=== PATIENT | female | born 1975 | race Caucasian/White ===

== ENCOUNTER 2021-10-04 02:02 | Inpatient (IN) | payer OTHER ==
[2021-10-04 02:48] VITALS: BMI 30.6
[2021-10-04] MEDS ORDERED: LACTATED RINGERS SOLUTION 1000 ML INFUS.BAG IV ONE ×2 (03:36→04:57)
[2021-10-04] MEDS ORDERED: ACETAMINOPHEN 1000 MG/100 ML BAG IVPB ONE (03:36)
[2021-10-04] MEDS ORDERED: ACETAMINOPHEN INJECTION 100 ML IVPB ONE ×2 (04:06→17:51)
[2021-10-04 04:30] LABS: VENOUS BASE EXCESS 1.5 mmol/L (-2-2); VENOUS O2 SATURATION 77.2 % (70-80); VENOUS PH 7.463 (7.310-7.410)
[2021-10-04 04:31] LABS: BASO % 0.4 % (0-2.0); EOS % 0.1 % (0-4.5); HEMATOCRIT 29.3 % (32.4-45.2); HEMOGLOBIN 9.1 GM/dL (10.7-15.3); LYMPH % 19.7 % (8-40); MCHC 31.1 g/dl (32.0-36.0); MEAN CELL VOLUME 56.5 fl (80-96); MEAN PLT VOLUME 8.9 fl (7.5-11.1); MONO % 8.6 % (3.8-10.2); NEUT % 71.2 % (42.8-82.8); PLATELET COUNT 126 10^3/uL (134-434); RDW 18.8 % (11.6-15.6); WHITE BLOOD COUNT 4.5 K/mm3 (4.0-10.0)
[2021-10-04 04:38] LABS: INR 1.21 (0.83-1.09); MCH 17.6 pg (25.7-33.7); PROTHROMBIN TIME (PATIENT) 13.9 SEC (9.7-13.0)
[2021-10-04 04:41] LABS: ACTIVATED PTT 26.7 SECONDS (25.2-36.5)
[2021-10-04 04:45] LABS: CHLORIDE 95 mmol/L (98-107); SODIUM 128 mmol/L (136-145)
[2021-10-04 04:47] LABS: CALCIUM 8.3 mg/dL (8.5-10.1)
[2021-10-04 04:48] LABS: ALBUMIN 3.2 g/dl (3.4-5.0); ANION GAP 5 MMOL/L (8-16); BLOOD UREA NITROGEN 6.6 mg/dL (7-18); CO2 28 mmol/L (21-32); GLUCOSE,RANDOM 354 mg/dL (74-106); LIPASE 141 U/L (73-393)
[2021-10-04 04:51] LABS: CREATININE 0.6 mg/dL (0.55-1.3); SGOT/AST 23 U/L (15-37); SGPT/ALT 24 U/L (13-61)
[2021-10-04 04:52] LABS: BILIRUBIN,TOTAL 0.5 mg/dL (0.2-1); TOT PROT 7.3 g/dl (6.4-8.2)
[2021-10-04 04:54] LABS: ALK PHOS 103 U/L (45-117)
[2021-10-04] MEDS ORDERED: PIPERACILLIN/TAZOB 3.375 GM 3.375 GM in DEXTROSE 5%-WATER - 50 ML IVPB ONE (05:38)
[2021-10-04] MEDS ORDERED: VANCOMYCIN 1 GM in D5W (PRE-DOCKED) 1,000 MG/250 ML IVPB ONE (05:38)
[2021-10-04] MEDS ORDERED: VANCOMYCIN 1 GRAM (PRE-DOCKED) 1,000 MG/250 ML BAG IVPB ONE (05:42)
[2021-10-04] MEDS ORDERED: PIPERACILLIN/TAZOB 3.375 GM 3.375 GM/50 ML BAG IVPB ONE (05:42)
[2021-10-04 06:04] LABS: EPI CELLS 10 /uL (0-25.1); HYALINE CASTS 0 /uL (0-3.1); URINE APPEARANCE CLOUDY; URINE BACTERIA >9,000 /uL (0-1359); URINE BILIRUBIN NEGATIVE (NEGATIVE); URINE COLOR YELLOW; URINE GLUCOSE (UA) 3+ (NEGATIVE); URINE KETONE 1+ (NEGATIVE); URINE LEUK ESTERASE 1+ (NEGATIVE); URINE NITRITE NEGATIVE (NEGATIVE); URINE PROTEIN 1+ (NEGATIVE); URINE RBC 23 /uL (0-23.9); URINE WBC 1181 /uL (0-25.8)
[2021-10-04] MEDS ORDERED: KETOROLAC TROMETHAMINE 15 MG/ML VIAL IVPUSH ONE (08:11)
[2021-10-04] MEDS ORDERED: KETOROLAC TROMETHAMINE 15 MG/ML VIAL ONE (08:29)
[2021-10-04 09:48] LABS: CALCIUM 7.9 mg/dL (8.5-10.1)
[2021-10-04 09:49] LABS: BLOOD UREA NITROGEN 4.3 mg/dL (7-18)
[2021-10-04 09:52] LABS: CREATININE 0.5 mg/dL (0.55-1.3)
[2021-10-04] MEDS ORDERED: ACETAMINOPHEN 1000 MG/100 ML BAG IVPB PRN (13:13)
[2021-10-04] MEDS: LACTATED RINGERS SOLUTION 1,000 ML/1,000 ML INFUS.BAG IV SCH (16:19)
[2021-10-04] MEDS: INSULIN SLIDING SCALE (NOVOLOG) 1 VIAL SQ SCH (17:57)
[2021-10-04] MEDS ORDERED: HEPARIN NA (PORCINE) 5,000 UNITS/ML 1ML VIAL ONE (23:14)
[2021-10-04] MEDS: HEPARIN NA (PORCINE) 5,000 UNITS/ML 1ML VIAL SQ SCH (23:21)
[2021-10-05] MEDS ORDERED: ACETAMINOPHEN INJECTION 100 ML IVPB ONE (03:34)
[2021-10-05] MEDS: INSULIN SLIDING SCALE (NOVOLOG) 1 VIAL SQ SCH ×3 (08:33→16:29)
[2021-10-05 08:36] LABS: BASO % 0.3 % (0-2.0); HEMATOCRIT 27.9 % (32.4-45.2); HEMOGLOBIN 8.5 GM/dL (10.7-15.3); LYMPH % 29.8 % (8-40); MCHC 30.3 g/dl (32.0-36.0); MEAN CELL VOLUME 57.4 fl (80-96); MEAN PLT VOLUME 8.8 fl (7.5-11.1); MONO % 7.2 % (3.8-10.2); NEUT % 62.7 % (42.8-82.8); PLATELET COUNT 116 10^3/uL (134-434); RBC 4.87 M/mm3 (3.60-5.2); RDW 19.1 % (11.6-15.6); WHITE BLOOD COUNT 3.5 K/mm3 (4.0-10.0)
[2021-10-05 08:39] LABS: MCH 17.4 pg (25.7-33.7)
[2021-10-05 08:59] LABS: BLOOD UREA NITROGEN 5.4 mg/dL (7-18); MAGNESIUM 2.1 mg/dL (1.8-2.4)
[2021-10-05 09:01] LABS: CHOLESTEROL 138 mg/dL (50-200)
[2021-10-05 09:02] LABS: CREATININE 0.4 mg/dL (0.55-1.3); PHOSPHOROUS 3.4 mg/dL (2.5-4.9); TRIGLYCERIDES 255 mg/dL (0-150)
[2021-10-05 09:03] LABS: BILIRUBIN,TOTAL 0.4 mg/dL (0.2-1); LDL CHOLESTEROL (ONLY SJRH) 91 mg/dL (5-100); TOT PROT 6.2 g/dl (6.4-8.2)
[2021-10-05 09:04] LABS: HDL CHOLESTEROL 14 mg/dL (40-60)
[2021-10-05 09:06] LABS: ALBUMIN 2.6 g/dl (3.4-5.0)
[2021-10-05] MEDS ORDERED: CEFEPIME HCL/D5W 2 GM/50 ML BAG IVPB ONE (09:09)
[2021-10-05] MEDS ORDERED: HEPARIN NA (PORCINE) 5,000 UNITS/ML 1ML VIAL ONE ×2 (09:26→22:17)
[2021-10-05] MEDS ORDERED: CEFEPIME 2 GM/100 ML BAG IVPB ONE (09:27)
[2021-10-05] MEDS ORDERED: CEFEPIME 2 GM in DEXTROSE 5%-WATER 100 ML IVPB ONE (10:00)
[2021-10-05] MEDS: HEPARIN NA (PORCINE) 5,000 UNITS/ML 1ML VIAL SQ SCH ×2 (10:01→22:41)
[2021-10-05] MEDS: INSULIN (LEVEMIR) 100 UNITS/ML UNITS SQ SCH ×2 (10:01→22:41)
[2021-10-05] MEDS: LACTATED RINGERS SOLUTION 1,000 ML/1,000 ML INFUS.BAG IV SCH (15:30)
[2021-10-05] MEDS: CEFEPIME 2 GM in DEXTROSE 5%-WATER 2 GM/100 ML BAG IVPB SCH (17:48)
[2021-10-05] MEDS ORDERED: ACETAMINOPHEN 325 MG TABLET (FP) PO PRN (21:21)
[2021-10-05] MEDS ORDERED: ACETAMINOPHEN 325 MG TABLET (FP) ONE (22:27)
[2021-10-06] MEDS ORDERED: CEFEPIME 2 GM/100 ML BAG IVPB ONE (02:19)
[2021-10-06] MEDS: CEFEPIME 2 GM in DEXTROSE 5%-WATER 2 GM/100 ML BAG IVPB SCH ×2 (02:28→10:18)
[2021-10-06] MEDS: INSULIN SLIDING SCALE (NOVOLOG) 1 VIAL SQ SCH ×3 (06:59→16:49)
[2021-10-06] MEDS: INSULIN (LEVEMIR) 100 UNITS/ML UNITS SQ SCH ×2 (06:59→22:11)
[2021-10-06 08:20] LABS: BASO % 0.3 % (0-2.0); EOS % 0.9 % (0-4.5); HEMATOCRIT 28.1 % (32.4-45.2); HEMOGLOBIN 8.5 GM/dL (10.7-15.3); LYMPH % 40.4 % (8-40); MCHC 30.1 g/dl (32.0-36.0); MEAN CELL VOLUME 57.4 fl (80-96); MEAN PLT VOLUME 9.6 fl (7.5-11.1); MONO % 7.3 % (3.8-10.2); NEUT % 51.1 % (42.8-82.8); PLATELET COUNT 143 10^3/uL (134-434); RDW 18.9 % (11.6-15.6); WHITE BLOOD COUNT 3.8 K/mm3 (4.0-10.0)
[2021-10-06 08:21] LABS: MCH 17.3 pg (25.7-33.7)
[2021-10-06 08:37] LABS: BLOOD UREA NITROGEN 4.7 mg/dL (7-18)
[2021-10-06 08:39] LABS: CREATININE 0.3 mg/dL (0.55-1.3)
[2021-10-06] MEDS ORDERED: DEXTROSE 5%-WATER 100 ML IVPB ONE (09:53)
[2021-10-06] MEDS ORDERED: CEFEPIME HCL 2 GM VIAL (RESTRICTED TO ID) ONE (09:53)
[2021-10-06] MEDS: HEPARIN NA (PORCINE) 5,000 UNITS/ML 1ML VIAL SQ SCH ×2 (10:19→22:10)
[2021-10-06 12:24] LABS: HIV INTERPRETATION NEGATIVE (NEGATIVE)
[2021-10-06] MEDS: CEFAZOLIN SODIUM 2 GM in DEXTROSE 5%-WATER 100 ML IVPB SCH (17:31)
[2021-10-07] MEDS: CEFAZOLIN SODIUM 2 GM in DEXTROSE 5%-WATER 100 ML IVPB SCH ×3 (02:24→19:10)
[2021-10-07] MEDS: INSULIN (LEVEMIR) 100 UNITS/ML UNITS SQ SCH ×2 (06:39→21:34)
[2021-10-07] MEDS: INSULIN SLIDING SCALE (NOVOLOG) 1 VIAL SQ SCH ×3 (06:39→16:35)
[2021-10-07] MEDS: HEPARIN NA (PORCINE) 5,000 UNITS/ML 1ML VIAL SQ SCH ×2 (11:15→21:37)
[2021-10-07] MEDS ORDERED: INSULIN (NOVOLOG) ASPART 100 UNITS/ML 10ML VIAL ONE (21:16)
[2021-10-08] MEDS: CEFAZOLIN SODIUM 2 GM in DEXTROSE 5%-WATER 100 ML IVPB SCH (02:19)
[2021-10-08] MEDS: INSULIN (LEVEMIR) 100 UNITS/ML UNITS SQ SCH (06:25)
[2021-10-08] MEDS: INSULIN SLIDING SCALE (NOVOLOG) 1 VIAL SQ SCH ×3 (06:25→16:39)
[2021-10-08 09:15] LABS: CALCIUM 8.3 mg/dL (8.5-10.1)
[2021-10-08 09:16] LABS: BLOOD UREA NITROGEN 6.9 mg/dL (7-18)
[2021-10-08 09:19] LABS: CREATININE 0.4 mg/dL (0.55-1.3)
[2021-10-08] MEDS ORDERED: DEXTROSE 5%-WATER 100 ML IVPB ONE (09:28)
[2021-10-08 09:30] LABS: BASO % 0.3 % (0-2.0); EOS % 2.9 % (0-4.5); HEMATOCRIT 29.1 % (32.4-45.2); HEMOGLOBIN 8.8 GM/dL (10.7-15.3); LYMPH % 40.5 % (8-40); MCHC 30.2 g/dl (32.0-36.0); MEAN CELL VOLUME 57.7 fl (80-96); MONO % 5.5 % (3.8-10.2); NEUT % 50.8 % (42.8-82.8); PLATELET COUNT 305 10^3/uL (134-434); RBC 5.04 M/mm3 (3.60-5.2); RDW 19.3 % (11.6-15.6); WHITE BLOOD COUNT 3.5 K/mm3 (4.0-10.0)
[2021-10-08] MEDS: HEPARIN NA (PORCINE) 5,000 UNITS/ML 1ML VIAL SQ SCH ×2 (09:30→21:40)
[2021-10-08] MEDS: CEFTRIAXONE 2 GM in DEXTROSE 5%-WATER 2 GM/100 ML BAG IVPB SCH (09:30)
[2021-10-08 09:34] LABS: MCH 17.4 pg (25.7-33.7)
[2021-10-08 10:46] LABS: ANISOCYTOSIS 3+; MACROCYTOSIS 0
[2021-10-08] MEDS ORDERED: INSULIN (NOVOLOG) ASPART 100 UNITS/ML 10ML VIAL ONE (11:44)
[2021-10-08] MEDS: sitaGLIPtin PHOSPHATE 50 MG TABLET PO SCH ×2 (16:32→21:41)
[2021-10-08] MEDS: metFORMIN HCL 500 MG TABLET (FP) PO SCH (16:32)
[2021-10-09] MEDS: metFORMIN HCL 500 MG TABLET (FP) PO SCH ×2 (06:37→16:36)
[2021-10-09] MEDS: INSULIN SLIDING SCALE (NOVOLOG) 1 VIAL SQ SCH ×3 (06:38→16:38)
[2021-10-09] MEDS ORDERED: DEXTROSE 5%-WATER 100 ML IVPB ONE (10:03)
[2021-10-09] MEDS: CEFTRIAXONE 2 GM in DEXTROSE 5%-WATER 2 GM/100 ML BAG IVPB SCH (10:33)
[2021-10-09] MEDS: HEPARIN NA (PORCINE) 5,000 UNITS/ML 1ML VIAL SQ SCH ×2 (10:34→21:14)
[2021-10-09] MEDS: sitaGLIPtin PHOSPHATE 50 MG TABLET PO SCH ×2 (10:34→21:13)
[2021-10-09 10:47] LABS: BASO % 0.4 % (0-2.0); EOS % 2.9 % (0-4.5); HEMATOCRIT 31.1 % (32.4-45.2); HEMOGLOBIN 9.3 GM/dL (10.7-15.3); LYMPH % 35.5 % (8-40); MCHC 29.8 g/dl (32.0-36.0); MEAN CELL VOLUME 57.5 fl (80-96); MEAN PLT VOLUME 8.5 fl (7.5-11.1); MONO % 4.8 % (3.8-10.2); NEUT % 56.4 % (42.8-82.8); PLATELET COUNT 454 10^3/uL (134-434); RDW 19.1 % (11.6-15.6)
[2021-10-09 10:49] LABS: MCH 17.2 pg (25.7-33.7)
[2021-10-09 11:09] LABS: BLOOD UREA NITROGEN 11.8 mg/dL (7-18)
[2021-10-09 11:12] LABS: CREATININE 0.6 mg/dL (0.55-1.3)
[2021-10-09 11:14] LABS: BILIRUBIN,TOTAL 0.3 mg/dL (0.2-1); TOT PROT 7.8 g/dl (6.4-8.2)
[2021-10-09 11:15] LABS: ALBUMIN 3.2 g/dl (3.4-5.0); CALCIUM 9.6 mg/dL (8.5-10.1)
[2021-10-09 14:06] VITALS: RESP 18
[2021-10-09] MEDS: LACTATED RINGERS SOLUTION 1,000 ML/1,000 ML INFUS.BAG IV SCH ×3 (14:09→16:25)
[2021-10-09] MEDS: SULFAMETHOXAZOLE/TRIMETHOPRIM 800MG/160MG D.S. TABLET PO SCH ×2 (14:21→21:13)
[2021-10-09] MEDS: INSULIN (LEVEMIR) 100 UNITS/ML UNITS SQ SCH ×2 (14:23→21:13)
[2021-10-10] MEDS: INSULIN (LEVEMIR) 100 UNITS/ML UNITS SQ SCH (06:53)
[2021-10-10] MEDS: metFORMIN HCL 500 MG TABLET (FP) PO SCH ×2 (06:53→15:09)
[2021-10-10] MEDS: INSULIN SLIDING SCALE (NOVOLOG) 1 VIAL SQ SCH ×3 (06:54→15:09)
[2021-10-10] MEDS: sitaGLIPtin PHOSPHATE 50 MG TABLET PO SCH (09:18)
[2021-10-10] MEDS: SULFAMETHOXAZOLE/TRIMETHOPRIM 800MG/160MG D.S. TABLET PO SCH (09:18)
[2021-10-10] MEDS: HEPARIN NA (PORCINE) 5,000 UNITS/ML 1ML VIAL SQ SCH (09:18)
[2021-10-10 10:02] LABS: BASO % 0.5 % (0-2.0); EOS % 2.4 % (0-4.5); HEMATOCRIT 29.6 % (32.4-45.2); HEMOGLOBIN 8.9 GM/dL (10.7-15.3); LYMPH % 30.2 % (8-40); MCHC 30.2 g/dl (32.0-36.0); MEAN CELL VOLUME 57.3 fl (80-96); MONO % 5.8 % (3.8-10.2); NEUT % 61.1 % (42.8-82.8); PLATELET COUNT 459 10^3/uL (134-434); RBC 5.17 M/mm3 (3.60-5.2); RDW 19.2 % (11.6-15.6); WHITE BLOOD COUNT 4.9 K/mm3 (4.0-10.0)
[2021-10-10 10:03] LABS: MCH 17.3 pg (25.7-33.7)
[2021-10-10 10:06] LABS: BLOOD UREA NITROGEN 8.3 mg/dL (7-18); CALCIUM 9.3 mg/dL (8.5-10.1)
[2021-10-10 10:09] LABS: CREATININE 0.5 mg/dL (0.55-1.3)
[2021-10-10 10:11] LABS: BILIRUBIN,TOTAL 0.2 mg/dL (0.2-1); TOT PROT 7.1 g/dl (6.4-8.2)
[2021-10-10] MEDS ORDERED: INSULIN (NOVOLOG) ASPART 100 UNITS/ML 10ML VIAL ONE (10:57)
[2021-10-10 11:26] VITALS: BP 110/64; PULSE 85; TEMP 98.1
[2021-10-10] MEDS: LACTATED RINGERS SOLUTION 1,000 ML/1,000 ML INFUS.BAG IV SCH (15:00)
== END 2021-10-10 16:30 | disposition home or self-care (01) | DRG 463 ==
LOC: JER 02:02 → JERBED 08:31 → J6S 10-06 06:49
PROVIDERS: ADMIT Internal Medicine; ATTEND Internal Medicine
DX: N39.0 Urinary tract infection, site not specified (principal); E11.65 Type 2 diabetes mellitus with hyperglycemia; R78.81 Bacteremia; D50.9 Iron deficiency anemia, unspecified; E86.0 Dehydration; E87.1 Hypo-osmolality and hyponatremia; E86.1 Hypovolemia
CPT/HCPCS: 36415; 71045-TC-FY; 74177-TC; 80048; 80053; 80061; 81003; 82550; 82553; 82728; 82803; 82962; 83036; 83540; 83550; 83605; 83690; 83735; 84100; 84484; 84703; 85025; 85610; 85730; 86850; 86900; 86901; 87040; 87086; 87186; 87389; 93005; 93010; 97116-GP; 97161-GP; 99285-25; C9803-CS; J1644; Q9967; U0003; U0005

== ENCOUNTER 2023-12-09 09:57 | Inpatient (IN) | payer OTHER ==
[2023-12-09 10:08] VITALS: BMI 30.5
[2023-12-09] MEDS ORDERED: ACETAMINOPHEN INJECTION 100 ML ONE ×2 (10:43→20:20)
[2023-12-09] MEDS: SODIUM CHLORIDE 0.9% 500 ML INFUS.BAG IV ONE ×2 (11:10→12:34)
[2023-12-09] MEDS: ACETAMINOPHEN 1000 MG/100 ML BAG IVPB ONE (11:11)
[2023-12-09 11:40] LABS: URINE APPEARANCE CLOUDY; URINE BILIRUBIN NEGATIVE (NEGATIVE); URINE COLOR YELLOW; URINE GLUCOSE (UA) 3+ (NEGATIVE); URINE KETONE 2+ (NEGATIVE); URINE LEUK ESTERASE 1+ (NEGATIVE); URINE NITRITE NEGATIVE (NEGATIVE); URINE PROTEIN 2+ (NEGATIVE)
[2023-12-09 11:41] LABS: BASO % 0.3 % (0-2.0); EOS % 0.1 % (0-4.5); HEMOGLOBIN 9.3 GM/dL (10.7-15.3); LYMPH % 6.9 % (8-40); MCH 20.2 pg (25.7-33.7); MCHC 30.9 g/dl (32.0-36.0); MEAN CELL VOLUME 65.3 fl (80-96); MEAN PLT VOLUME 9.9 fl (7.5-11.1); MONO % 3.1 % (3.8-10.2); NEUT % 89.6 % (42.8-82.8); PLATELET COUNT 193 10^3/uL (134-434); RBC 4.59 M/mm3 (3.60-5.2); RDW 17.2 % (11.6-15.6); WHITE BLOOD COUNT 16.1 K/mm3 (4.0-10.0)
[2023-12-09 11:44] LABS: URINE RBC 67 /uL (0-23.9)
[2023-12-09 11:45] LABS: EPI CELLS 38 /uL (0-25.1); HYALINE CASTS 2 /uL (0-3.1); URINE BACTERIA 59811 /uL (0-1359); URINE WBC 1698 /uL (0-25.8)
[2023-12-09 11:58] LABS: CHLORIDE 95 mmol/L (98-107); SODIUM 129 mmol/L (136-145)
[2023-12-09 12:01] LABS: CALCIUM 8.5 mg/dL (8.5-10.1)
[2023-12-09 12:02] LABS: ALBUMIN 2.9 g/dl (3.4-5.0); ANION GAP 9 mmol/L (4-13); CO2 25 mmol/L (21-32)
[2023-12-09 12:05] LABS: CREATININE 0.8 mg/dL (0.55-1.3); GLUCOSE,RANDOM 404 mg/dL (74-106); SGOT/AST 23 U/L (15-37); SGPT/ALT 29 U/L (13-61)
[2023-12-09 12:06] LABS: BILIRUBIN,TOTAL 0.9 mg/dL (0.2-1); TOT PROT 6.9 g/dl (6.4-8.2)
[2023-12-09 12:07] LABS: ANISOCYTOSIS 1+; MACROCYTOSIS 0
[2023-12-09 12:08] LABS: ALK PHOS 137 U/L (45-117)
[2023-12-09 12:40] LABS: VENOUS PCO2 33.4 mmHg (38-52); VENOUS PH 7.4 (7.310-7.410)
[2023-12-09 12:55] LABS: HIV INTERPRETATION NEGATIVE (NEGATIVE)
[2023-12-09] MEDS ORDERED: PIPERACILLIN/TAZOB 3.375 GM 3.375 GM/50 ML BAG IVPB ONE (14:24)
[2023-12-09] MEDS: PIPERACILLIN/TAZOB 3.375 GM 3.375 GM in DEXTROSE 5%-WATER - 50 ML IVPB ONE (14:35)
[2023-12-09 16:35] LABS: RETICULOCYTES 1.19 % (0.5-1.5)
[2023-12-09] MEDS ORDERED: BUPIVACAINE HCL/PF 0.25% (2.5MG/ML) 10 ML VIAL ONE (16:37)
[2023-12-09] MEDS ORDERED: PROPOFOL 20 ML ONE (16:50)
[2023-12-09] MEDS ORDERED: SEVOFLURANE 250 ML BTL ONE (16:50)
[2023-12-09] MEDS ORDERED: LIDOCAINE HCL/PF 2% SDV 5ML VIAL ONE (16:51)
[2023-12-09] MEDS ORDERED: PHENYLEPHRINE HCL 10 MG/1 ML SINGLE DOSE VIAL ONE (16:51)
[2023-12-09] MEDS ORDERED: ONDANSETRON 4 MG/2 ML VIAL ONE (16:54)
[2023-12-09] MEDS: INSULIN ASPART SLIDING SCALE (NOVOLOG) 1 VIAL SQ SCH (17:16)
[2023-12-09] MEDS: INSULIN (LEVEMIR) 100 UNITS/ML UNITS SQ ONE (17:19)
[2023-12-09] MEDS ORDERED: INSULIN ASPART SLIDING SCALE (NOVOLOG) 1 VIAL SQ ONE (17:23)
[2023-12-09] MEDS ORDERED: MIDAZOLAM HCL 2 MG/2 ML SINGLE DOSE VIAL ONE (17:46)
[2023-12-09 17:53] LABS: EPI CELLS 2 /uL (0-25.1); HYALINE CASTS 0 /uL (0-3.1); URINE APPEARANCE Clear; URINE BACTERIA 5090 /uL (0-1359); URINE BILIRUBIN Negative (NEGATIVE); URINE COLOR Yellow; URINE GLUCOSE (UA) >=1000 (NEGATIVE); URINE KETONE 15 mg/dl (NEGATIVE); URINE LEUK ESTERASE Negative (NEGATIVE); URINE NITRITE Positive (NEGATIVE); URINE PROTEIN 30 (NEGATIVE); URINE RBC 45 /uL (0-23.9)
[2023-12-09] MEDS ORDERED: ONDANSETRON 4 MG/2 ML VIAL IVPUSH PRN ×2 (18:23→20:17)
[2023-12-09] MEDS ORDERED: oxyCODONE HCL 5 MG TABLET PO PRN ×2 (18:23→20:17)
[2023-12-09] MEDS: PIPERACILLIN/TAZOBACTAM 3.375 GM VIAL IVPB ONE (18:25)
[2023-12-09] MEDS: BUPIVACAINE HCL/PF 0.25% (2.5MG/ML) 10 ML VIAL IJ ONE ×2 (18:26)
[2023-12-09] MEDS ORDERED: KETOROLAC TROMETHAMINE 30 MG/1 ML VIAL ONE (19:12)
[2023-12-09] MEDS: LACTATED RINGERS SOLUTION 1,000 ML IV SCH ×3 (20:03→22:43)
[2023-12-09] MEDS: ACETAMINOPHEN 1000 MG/100 ML BAG IVPB SCH (20:33)
[2023-12-09] MEDS ORDERED: INSULIN (LEVEMIR) 100 UNITS/ML UNITS SQ SCH (22:00)
[2023-12-09] MEDS: CEFTRIAXONE 1 GM in DEXTROSE 5%-WATER - 50 ML IVPB SCH (22:42)
[2023-12-10] MEDS: KETOROLAC TROMETHAMINE 30 MG/1 ML VIAL IVPUSH PRN ×2 (00:30→21:47)
[2023-12-10] MEDS: INSULIN ASPART SLIDING SCALE (NOVOLOG) 1 VIAL SQ SCH (00:49)
[2023-12-10] MEDS: PIPERACILLIN/TAZOB 3.375 GM 3.375 GM in DEXTROSE 5%-WATER - 50 ML IVPB SCH ×2 (02:32→08:17)
[2023-12-10] MEDS: LACTATED RINGERS SOLUTION 1,000 ML IV SCH (04:31)
[2023-12-10] MEDS: PIPERACILLIN/TAZOB 4.5 GM 4.5 GM in DEXTROSE 5%-WATER 100 ML IVPB SCH (04:32)
[2023-12-10] MEDS ORDERED: ACETAMINOPHEN 325 MG TABLET (FP) PO PRN (07:45)
[2023-12-10] MEDS ORDERED: oxyCODONE HCL 5 MG TABLET PO PRN (07:48)
[2023-12-10] MEDS: CEFTRIAXONE 2 GM in DEXTROSE 5%-WATER 100 ML IVPB SCH (09:22)
[2023-12-10] MEDS ORDERED: CEFTRIAXONE 1 GM in DEXTROSE 5%-WATER - 50 ML IVPB SCH (10:00)
[2023-12-10 10:11] LABS: HEMATOCRIT 23.9 % (32.4-45.2); HEMOGLOBIN 7.3 GM/dL (10.7-15.3); MCH 20.3 pg (25.7-33.7); MCHC 30.5 g/dl (32.0-36.0); MEAN CELL VOLUME 66.4 fl (80-96); MEAN PLT VOLUME 9.3 fl (7.5-11.1); PLATELET COUNT 138 10^3/uL (134-434); WHITE BLOOD COUNT 8.9 K/mm3 (4.0-10.0)
[2023-12-10 10:36] LABS: POTASSIUM 3.3 mmol/L (3.5-5.1)
[2023-12-10 10:55] LABS: CALCIUM 7.5 mg/dL (8.5-10.1)
[2023-12-10 10:57] LABS: BLOOD UREA NITROGEN 12.6 mg/dL (7-18)
[2023-12-10 10:59] LABS: CREATININE 0.6 mg/dL (0.55-1.3)
[2023-12-10] MEDS: POTASSIUM CHLORIDE ORAL LIQUID 20 MEQ/15 ML PO ONE (12:15)
[2023-12-10] MEDS: INSULIN (LEVEMIR) 100 UNITS/ML UNITS SQ SCH (21:46)
[2023-12-11] MEDS ORDERED: CEFTRIAXONE 1 GM in DEXTROSE 5%-WATER - 50 ML IVPB SCH ×2 (10:00→11:30)
[2023-12-11 10:27] LABS: HEMATOCRIT 24.6 % (32.4-45.2); HEMOGLOBIN 7.6 GM/dL (10.7-15.3); MCH 20.5 pg (25.7-33.7); MCHC 30.9 g/dl (32.0-36.0); MEAN CELL VOLUME 66.3 fl (80-96); MEAN PLT VOLUME 8.7 fl (7.5-11.1); PLATELET COUNT 180 10^3/uL (134-434); RDW 17.3 % (11.6-15.6); WHITE BLOOD COUNT 5.9 K/mm3 (4.0-10.0)
[2023-12-11 10:42] LABS: POTASSIUM 3.8 mmol/L (3.5-5.1)
[2023-12-11 10:45] LABS: CALCIUM 7.2 mg/dL (8.5-10.1)
[2023-12-11 10:49] LABS: ALBUMIN 2.1 g/dl (3.4-5.0); CREATININE 0.6 mg/dL (0.55-1.3)
[2023-12-11 10:51] LABS: BILIRUBIN,TOTAL 0.5 mg/dL (0.2-1); TOT PROT 5.4 g/dl (6.4-8.2)
[2023-12-11] MEDS: AMOX TR/POT CLAV 875MG/125MG TABLETS (FP) PO SCH (12:23)
[2023-12-11] MEDS ORDERED: AMOX TR/POT CLAV 875MG/125MG TABLETS (FP) PO SCH (17:30)
[2023-12-12] MEDS: POLYETHYLENE GLYCOL (HEALTHYLAX) 3350 17 GM PACKET PO SCH (09:23)
[2023-12-12 09:27] VITALS: RESP 20
[2023-12-12 15:12] VITALS: BP 133/69; PULSE 79; TEMP 99.7
== END 2023-12-12 17:45 | disposition home or self-care (01) | DRG 225 ==
LOC: JER 09:57 → JERBED 14:21 → J8W 22:52
PROVIDERS: ADMIT Student in an Organized Health Care Education/Training Program; ATTEND Nurse Practitioner Acute Care
PROC: 0DTJ4ZZ Resection of Appendix, Percutaneous Endoscopic Approach (ICD-10-PCS; principal; 2023-12-09 14:45)
DX: K35.31 Acute appendicitis with localized peritonitis and gangrene, without perforation (principal); R65.10 Systemic inflammatory response syndrome (SIRS) of non-infectious origin without acute organ dysfunction; E11.65 Type 2 diabetes mellitus with hyperglycemia; D50.9 Iron deficiency anemia, unspecified; N39.0 Urinary tract infection, site not specified; E66.9 Obesity, unspecified; Z68.30 Body mass index [BMI] 30.0-30.9, adult
CPT/HCPCS: 36415; 74177-TC; 80048; 80053; 81003; 82010; 82728; 82803; 82962; 83036; 83540; 83550; 83605; 84466; 84703; 85025; 85027; 85045; 86803; 87040; 87086; 87186; 87389; 88304-TC; 93005; 93010; 94760; 99285-25; J0131; Q9967